=== PATIENT | male | born 1965 | race African-American/Black ===

== ENCOUNTER 2017-01-04 22:27 | Emergency (ER) ==
[2017-01-04 23:31] LABS: URINE SOURCE CLEAN CATCH
[2017-01-04 23:34] LABS: BILIRUBIN URINE NEGATIVE (NEGATIVE); BLOOD URINE 2+ (NEGATIVE); CLARITY CLEAR (CLEAR); COLOR YELLOW; GLUCOSE URINE NEGATIVE (NEGATIVE); LEUKOCYTES URINE TRACE (NEGATIVE); NITRITE URINE NEGATIVE (NEGATIVE); PROTEIN URINE TRACE mg/dL (NEGATIVE); SP GRAVITY URINE 1.025; UROBILINOGEN URINE NORMAL
--- NOTE | 2017-01-04 23:39 | PROVIDER DOCUMENTATION ---
HPI-Abdominal Pain/GI Problem <Audelia Blake - Last Filed: 01/05/17 01:47> - General Source: patient - History of Present Illness-ABD Nature of Presenting Problems: had sudden onset of abdominal pain in mid epigstrium yesterday assoc with vomiting no f/c no gi blood lose no urinary sx was her w diverticulitis last month Abdominal Pain Onset Location: reports: epigastric Pain Radiation: reports: no radiation Quality of Pain: reports: sharp, stabbing Severity in ED: reports: moderate Onset/Duration: reports: 2 days ago Timing: reports: still present Activities at Onset: reports: light activity Exposure to sick contacts?: No Modifying Factors: worse with: palpation Associated Symptoms: reports: nausea. denies: constipation, diarrhea, fever/ chills, genitourinary problems, loss of appetite Dark Stools Present?: reports: none noticed Rectal Bleeding: reports: none # of Diarrhea Episodes: 0 Rectal Pain: reports: none # of Vomiting Episodes: 3 Emesis Description: reports: none Bruising or Bleeding Gums?: No Similar Symptoms Previously?: No Recently seen or treated by another doctor?: No <Ian Ortiz - Last Filed: 01/05/17 02:03> - General Chief Complaint: Abdominal Pain Stated Complaint: ABD PAIN Time Seen by Provider: 01/04/17 23:30 Allergies/Adverse Reactions: Patient Allergies Allergy/AdvReac Type Severity Reaction Status Date / Time No Known Allergies Allergy Verified 01/04/17 23:16 Home Medications: Home Medication List Medication Instructions Recorded Confirmed Last Taken Type Lisinopril/Hydrochlorothiazide 1 each PO DAILY #30 tablet 08/09/16 01/04/17 Rx [Lisinopril-Hctz 20-12.5 mg Tab] Acetaminophen with Codeine 1 each PO Q6H PRN PRN #20 tablet 01/05/17 Unknown Rx [Tylenol with Codeine #3 Tablet] Review of Systems - Adult - REVIEW OF SYSTEMS - ADULT Constitutional: reports: no symptoms reported. denies: chills, fever, night sweats Eyes: reports: no symptoms reported Ears, Nose, Mouth & Throat: reports: no symptoms reported Cardiovascular: reports: no symptoms reported Respiratory: reports: no symptoms reported Gastrointestinal: reports: abdominal pain, vomiting. denies: hematemesis, constipation, diarrhea, difficulty swallowing, frequent heartburn, nausea, poor appetite, rectal bleeding Genitourinary: reports: no symptoms reported Musculoskeletal: reports: no symptoms reported Integumentary: reports: no symptoms reported Neurological: reports: no symptoms reported Endocrine: reports: no symptoms reported Hematologic/Lymphatic: reports: no symptoms reported Allergic/Immunologic: reports: no symptoms reported <Ian Ortiz - Last Filed: 01/05/17 02:03> Past History - Adult - PAST MEDICAL HISTORY-ADULT Review of Records: reports: Nursing Assessment Review, Medications Reviewed, Social history reviewed & non-contributory. Major Childhood Illnesses: reports: denies history Cardiovascular: reports: HTN Gastrointestinal: reports: diverticulosis Genitourinary: reports: denies history Musculoskeletal: reports: denies history Neurological: reports: denies history Psychiatric: reports: denies history Endocrine/Immune: reports: denies history - PRIOR SURGERIES/PROCEDURES Surgical/Procedure History: reports: none - IMMUNIZATION STATUS Childhood Immunizations: See Nurse Assessment Flu Vaccine: See Nurse Assessment - FAMILY HISTORY Family History: reviewed, not pertinent - SOCIAL HISTORY Substance Use: none/never Alcohol Use Frequency: occasionally <Ian Ortiz - Last Filed: 01/05/17 02:03> Physical Exam-General - PHYSICAL EXAM-ADULT Initial Vital Signs Reviewed: Yes - CONSTITUTIONAL General Appearance: appears well, alert, no apparent distress - EYES Eyes: PERRL/EOMI, pink conjunctivae - HEAD, EARS, NOSE, MOUTH & THROAT HENMT: normocephalic/atraumatic, moist mucous membranes, normal ENT inspection, pharynx normal - NECK Neck: supple - RESPIRATORY Respiratory: lungs clear, no pleuratic chest pain, no respiratory distress, no accessory muscle use - CARDIOVASCULAR Cardiovascular: regular rate, rhythm - GASTROINTESTINAL (ABDOMEN) Abdominal Exam: soft, no organomegaly - LYMPHATIC Lymphatic: no adenopathy - MUSCULOSKELETAL Back Exam: normal inspection Extremity: normal range of motion, non-tender, normal gait - SKIN Integumentary: normal color, normal turgor - NEUROLOGIC Neurologic: grossly normal - PSYCHIATRIC Psych/Mental Status: oriented x 3 <Ian Ortiz - Last Filed: 01/05/17 02:03> Progress - CT/MRI 1 CT Study: Abdomen, Pelvis Impression: Abnormal (enlarged heterogeneous pancreatic head with pancreatic fat stranding suggesting acute pancratitis. Trace fluid seen in the pelvis. No urolithiasis or hydronephrosis. : Dr. Mariano Rad radiologist) <Audelia Blake - Last Filed: 01/05/17 01:47> Departure <Audelia Blake - Last Filed: 01/05/17 01:47> - Departure Time of Disposition Order: 02:01 Certified Medical Emergency: Emergent <AngelIan - Last Filed: 01/05/17 02:03> - Departure DIAGNOSIS: Pancreatitis Qualifiers: Chronicity: acute Pancreatitis type: unspecified pancreatitis type Acute pancreatitis complication: unspecified Qualified Code(s): K85.90 - Acute pancreatitis without necrosis or infection, unspecified Disposition: HOME 01 Condition: Stable Additional Instructions: follow up with dr busby ED Follow Up Instructions: You have been treated by a care provider in the Emergency Department. These instructions are being provided to you so you can have an understanding of how to care for yourself upon discharge. Upon discharge from the Emergency Department, you are responsible for making arrangements for follow-up care by a physician of your choice. Take all prescribed medications as directed. Return to the Emergency Department immediately for any new or worsening symptoms. You may call the Physician Referral phone number at [phone] to obtain a list of Physicians who are taking new patients. Prescriptions: Acetaminophen with Codeine [Tylenol with Codeine #3 Tablet] 1 each PO Q6H PRN PRN #20 tablet PRN Reason: Pain Physician Attestation
[2017-01-04 23:44] LABS: MANUAL DIFF NEEDED? NO
[2017-01-04 23:48] LABS: BASO% 0.5 % (0.0-0.8); EOS# 0.28 X1000 (0.0-0.7); EOS% 2.6 % (0.0-10.0); HEMATOCRIT 46.4 % (42.0-52.0); HEMOGLOBIN 16.3 g/dL (14.0-18.0); IMM GRAN# 0.02 X1000 (0.0-0.04); IMM GRAN% 0.2 % (0.0-0.5); LYMPH# 1.98 X1000 (1.2-3.4); LYMPH% 18.7 % (20.5-51.1); MCH 29.9 PG (27-31); MCHC 35.1 g/dL (33-37); MONO# 0.78 X1000 (0.11-0.59); MONO% 7.4 % (1.7-9.3); MPV 9.1 FL (7.4-10.4); NEUT% 70.6 % (42.2-75.2); PLT 259 X1000 (130-400); RBC 5.46 XMIL (4.7-6.1)
[2017-01-04 23:55] LABS: URINE CRYSTAL CA OXALATE PRESENT /HPF; URINE CULTURE PL NEEDED? YES; URINE EPITHELIAL CELLS <10 /HPF (<10); URINE WBC <10 /HPF (<10)
[2017-01-05 00:06] LABS: AGAP 12; ALBUMIN 4.1 g/dL (3.5-5.0); ALKALINE PHOSPHATASE 58 U/L (32-122); BUN 13 mg/dL (8-22); CALCIUM 9.5 mg/dL (8.8-10.2); CHLORIDE 101 mmol/L (98-107); COSMO 277; GOT 18 U/L (10-34); GPT 17 U/L (10-44); POTASSIUM 3.9 mmol/L (3.5-5.1); SODIUM 139 mmol/L (136-145); TCO2 26 mmol/L (25-35); TOTAL PROTEIN 7.3 g/dL (6.3-8.3)
[2017-01-05 00:07] LABS: AMYLASE 58 U/L (20-200); LIPASE 20 U/L (13-60)
[2017-01-05] MEDS ORDERED: G.I. COCKTAIL PO ONE (00:49)
[2017-01-05] MEDS ORDERED: PHENERGAN PO ONE (02:03)
[2017-01-05] MEDS ORDERED: NORCO-7.5 PO ONE (02:03)
[2017-01-05] MEDS ORDERED: TORADOL PO ONE (02:15)
[2017-01-05 02:40] VITALS: BP 146/82
--- NOTE | 2017-01-05 08:07 | Diag Imaging Result Document ---
PROCEDURE NAME: RENAL STONE SEARCH - 01/05/2017 CT ABDOMEN AND PELVIS WITHOUT ORAL OR INTRAVENOUS CONTRAST: TECHNIQUE: Dose-reduction protocol. COMPARISON: Compared to 10/28/2016. FINDINGS: There is a tiny nodule in the left lower lobe laterally. This is unchanged. No pleural effusions. There is fatty infiltration of the liver. Small hypodense area anteriorly is unchanged. The spleen is not enlarged. The gallbladder is contracted. The pancreatic head is prominent on the current study and there are adjacent inflammatory changes. At least a portion of the appearance is due to a distended duodenum which was present on the prior study. No pancreatic calcifications. No distinct mass. Normal adrenal glands. No renal stones. No hydronephrosis. No aortic aneurysm. The bowel loops are not dilated. A small amount of fluid is found in the pelvis. There are multiple scattered diverticula throughout the colon. No free air. No abscess. IMPRESSION: 1. Findings suspicious for duodenitis or acute pancreatitis. 2. Fatty infiltration of the liver. 3. Diverticulosis. 4. No renal stones or hydronephrosis. A preliminary report was given at 1:37 a.m.
== END 2017-01-05 02:25 | disposition home or self-care (01) ==
LOC: P.ED 22:27
DX: K85.90 Acute pancreatitis without necrosis or infection, unspecified (principal); K76.0 Fatty (change of) liver, not elsewhere classified; K57.90 Diverticulosis of intestine, part unspecified, without perforation or abscess without bleeding; R10.13 Epigastric pain; R11.2 Nausea with vomiting, unspecified; I10 Essential (primary) hypertension; Z79.899 Other long term (current) drug therapy
CPT/HCPCS: 74176; 80053; 81001; 82150; 83690; 85025; 87088